=== PATIENT | female | born 1940 | race Caucasian/White ===

== ENCOUNTER → 2024-11-15 | Outpatient (CLI) | payer MEDICARE, BC, SELFPAY ==
--- NOTE | 2024-11-15 17:05 | RAD_ITS ---
PROCEDURE: Cervical spine radiographs, three views REASON FOR EXAM: Postlaminectomy syndrome TECHNIQUE: Three views of the cervical spine were obtained. COMPARISON: None available FINDINGS: Three views of the cervical spine were obtained. The bones are osteopenic. On the lateral projection, the cervical spine is imaged from the skull base through the C7-T1 interspace. Intact fixation plate and multiple screws at the anterior margin of C3-C5. There are interbody spacer devices at C3-4 and C4-5. No definite acute fracture in the cervical spine. Grade 1 anterolisthesis of C3 relative to C4. There is grade 1 retrolisthesis of C5 relative to C4 and C6. Grade 1 anterolisthesis of C7 relative to T1. Moderately extensive multilevel degenerative disc and facet disease in the cervical spine. Severe degenerative disc disease at C5-6 and C6-7. The prevertebral soft tissues appear within normal limits. Upper lungs are clear. No tracheal deviation. Visualized portions of the odontoid process are grossly intact, although evaluation is limited on this study. RAD/Cerv Spine 2 or 3 Views IMPRESSION: Osteopenia. No definite acute bony abnormality of the cervical spine, although evaluation is limited on this study. Grossly intact anterior fixation plate at C3-C5. Moderately extensive multilevel degenerative disc and facet disease in the cerv ical spine as above. Reading Location: [facility]
--- NOTE | 2024-11-15 17:05 | RAD_ITS ---
PROCEDURE: LUMBAR SPINE 2 OR 3 VIEWS REASON FOR EXAM: Post laminectomy syndrome. TECHNIQUE: 2 view(s) of the lumbar spine COMPARISON: None. FINDINGS: Status post dorsal fusion with instrumentation and interbody fusion at L3 through S1. Normal lumbar vertebral heights. No evidence of fracture. Mild multilevel spondylosis. Degenerative disc disease at T11-12 and T12-L1. Levoscoliosis. No spondylolysis spondylolisthesis are noted. Numerous metallic clips from prior surgery. RAD/Lumbar Spine 2 or 3 Views IMPRESSION: Status post dorsal fusion with instrumentation, L3 through S1. Levoscoliosis. No acute osseous findings. Degenerative disc disease. Spondylosis. Reading Location: [facility]
== END | disposition home or self-care (01) ==
LOC: RAD 16:50
PROVIDERS: PCP Internal Medicine; Referring Provider Anesthesiology Pain Medicine; Visit Provider Anesthesiology Pain Medicine
DX: M96.1 Postlaminectomy syndrome, not elsewhere classified (principal)
CPT/HCPCS: 72040; 72100

== ENCOUNTER → 2024-12-18 | Outpatient (CLI) | payer MEDICARE, BC, SELFPAY ==
--- NOTE | 2024-12-18 15:50 | RAD_ITS ---
EXAM: XR Right Hip With Pelvis When Performed, 1 View CLINICAL INDICATION: RIGHT HIP PAIN TECHNIQUE: Frontal view of the right hip with pelvis when performed. COMPARISON: No relevant prior studies available. FINDINGS: BONES/JOINTS: Mild degenerative change of the hip joint. No acute fracture. No dislocation. SOFT TISSUES: Unremarkable. RAD/HIP, UNI W/ Pelvis 2-3 Views IMPRESSION: Degenerative changes as above. Reading Location: [facility]
== END | disposition home or self-care (01) ==
LOC: RAD 15:31
PROVIDERS: PCP Internal Medicine; Referring Provider Anesthesiology Pain Medicine; Visit Provider Anesthesiology Pain Medicine
DX: M25.551 Pain in right hip (principal)
CPT/HCPCS: 73502

== ENCOUNTER → 2025-04-04 | Outpatient (CLI) | payer MEDICARE, BC, SELFPAY ==
[2025-04-04 14:36] LABS: Barbiturate Urine NEGATIVE (< 200 ng/mL); Benzodiazepine Urine NEGATIVE (< 200 ng/mL); PCP Urine NEGATIVE (< 25 ng/mL); THC Urine NEGATIVE (< 50 ng/mL)
== END | disposition home or self-care (01) ==
LOC: LAB 13:01
PROVIDERS: PCP Internal Medicine; Referring Provider Anesthesiology Pain Medicine; Visit Provider Anesthesiology Pain Medicine
DX: F11.20 Opioid dependence, uncomplicated (principal)
CPT/HCPCS: 80307